=== PATIENT | female | born 1955 | race Two or more races ===

== ENCOUNTER 2019-11-19 15:13 | Day surgery (SDC) | payer OTHER ==
[~2019-11-19] VITALS: Ht 149.9 cm; Wt 54.4 kg
[~2019-11-19 15:13] MED LIST: CIPRO750 MG PO; CLONAZEPAM1 MG PO; COLACE100 MG PO; METHYLPRED4 MG/DOSE- PO; NEURONTIN800 MG PO; PERCOCET 5/3251 TAB PO
[2019-11-19] MEDS ORDERED: LEVOTHYROXINE25 MCG (15:32)
[2019-11-19] MEDS ORDERED: TRAZODONE HCL100 MG (15:33)
[2019-11-19] MEDS ORDERED: BUPROPION HCL100 MG (15:34)
--- NOTE | 2019-11-19 15:43 | NUR ---
PACIENTE REFERIDA POR LA DRA. FERMIN WELSH PARA REMOVER UN ESTIMULADOR DE VEJIGA.
--- NOTE | 2019-11-19 16:06 | NUR ---
SE ORIENTA PTE SOBRE TX MEDICO EL CUAL REFIERE ENTENDER.SE LE EXTRAEN MUESTRAS BAJO MEDIDAS ASEPTICAS,SE CANALIZA Y SE COLOCA FLUIDOS DE MANTENIMIENTO,SE NOTIFICA CT.
--- NOTE | 2019-11-19 16:56 | NUR ---
SE REALIZA EKG.
== END 2019-11-20 08:00 | disposition home or self-care (01) ==
LOC: ER 15:13 → CIR.AMB 16:59 → O/R 21:32 → CIR.AMB 21:32 → SURG 21:32 → CIR.AMB 11-20 08:00 → SURG 11-20 09:03 → O/R 11-20 09:03
DX: T85.193A Other mechanical complication of implanted electronic neurostimulator, generator, initial encounter (principal)